=== PATIENT | female | born 1965 | race Caucasian/White ===

== ENCOUNTER 2020-10-19 10:40 | Inpatient (IN) | payer BC ==
[2020-10-19] MEDS ORDERED: SODIUM CHLORIDE 0.9% 1,000 ML IV STA (11:13)
[2020-10-19 11:26] LABS: Basophils % (A) 1 %; Eosinophils % (A) 0 %; HCT 49.6 % (34.0-46.0); HGB 16.7 gm/dL (11.4-16.0); Lymphocytes # (A) 1.2 k/uL (1.0-4.8); Lymphocytes % (A) 19 %; MCH 31.3 pg (25.0-35.0); MCHC 33.7 g/dL (31.0-37.0); MCV 92.8 fL (80.0-100.0); Mean Platelet Volume 8.2; Monocytes # (A) 0.2 k/uL (0-1.0); Monocytes % (A) 4 %; Neutrophils # (A) 4.6 k/uL (1.3-7.7); Neutrophils % (A) 75 %; Platelet Count 203 k/uL (150-450); RBC 5.35 m/uL (3.80-5.40); RDW 12.4 % (11.5-15.5); WBC 6.2 k/uL (3.8-10.6)
[2020-10-19 11:42] LABS: ALT 23 U/L (4-34); AST 55 U/L (14-36); African American GFR (CKD) >90 (>60 ml/min/1.73 sqM); Alkaline Phosphatase 73 U/L (38-126); Anion Gap 12 mmol/L; Blood Urea Nitrogen 16 mg/dL (7-17); Calcium 8.9 mg/dL (8.4-10.2); Carbon Dioxide 29 mmol/L (22-30); Chloride 97 mmol/L (98-107); Glucose 116 mg/dL (74-99); Magnesium 2.4 mg/dL (1.6-2.3); Non-African American GFR(CKD) >90 (>60 ml/min/1.73 sqM); Potassium 3.9 mmol/L (3.5-5.1); Sodium 138 mmol/L (137-145); Total Bilirubin 0.7 mg/dL (0.2-1.3); Total Protein 7.3 g/dL (6.3-8.2)
--- NOTE | 2020-10-19 11:42 | XR ---
EXAMINATION TYPE: XR chest 2V DATE OF EXAM: 10/19/2020 COMPARISON: NONE HISTORY: Difficulty in breathing. Cough and congestion. TECHNIQUE: Frontal and lateral views of the chest are obtained. FINDINGS: There is multifocal reticular and increased opacities of the mid to lower lungs. The card iac silhouette size is within normal limits. The osseous structures are intact. No pleural effusion or pneumothorax seen. Overlying EKG leads. IMPRESSION: Bilateral multifocal mid to lower lung increased opacities. Correlate to exclude covid-1 9 infection in current environment.
[2020-10-19 11:43] LABS: INR 0.9 (<1.2); Partial Thromboplastin Time 22.4 sec (22.0-30.0); Prothrombin Time 10.2 sec (9.0-12.0)
--- NOTE | 2020-10-19 11:55 | ED ---
SOB HPI - General Chief Complaint: Shortness of Breath Stated Complaint: covid+, worsening symptoms Time Seen by Provider: 10/19/20 11:00 Source: patient, RN notes reviewed Mode of arrival: wheelchair Limitations: no limitations - History of Present Illness Initial Comments: This a 54-year-old female presents emergency Department with chief complaint of shortness of breath. Patient states that she was diagnosed with COVID-19, symptoms started at the end of September with diagnosed on October 09. Patient states that she is not improving next has worsened recently. She states she just feels very weak, short of breath worse with any exertion. Patient had fevers and chills initially. Patient states she started with sore throat, congestion. Patient does not see PCP has no significant past THAT she knows of. - Related Data Home Medications Medication Instructions Recorded Confirmed No Known Home Medications 10/19/20 10/19/20 Allergies Allergy/AdvReac Type Severity Reaction Status Date / Time No Known Allergies Allergy Verified 10/19/20 10:52 Review of Systems ROS Statement: Those systems with pertinent positive or pertinent negative responses have been documented in the HPI. ROS Other: All systems not noted in ROS Statement are negative. Past Medical History Past Medical History: No Reported History History of Any Multi-Drug Resistant Organisms: None Reported Past Surgical History: No Surgical Hx Reported Past Psychological History: No Psychological Hx Reported Smoking Status: Never smoker Past Alcohol Use History: None Reported Past Drug Use History: None Reported General Exam Limitations: no limitations General appearance: alert, in no apparent distress Head exam: Present: atraumatic, normocephalic, normal inspection Eye exam: Present: normal appearance, PERRL, EOMI. Absent: scleral icterus, conjunctival injection, periorbital swelling ENT exam: Present: normal exam, normal oropharynx, mucous membranes moist Neck exam: Present: normal inspection, full ROM. Absent: tenderness, meningismus, lymphadenopathy Respiratory exam: Present: decreased breath sounds. Absent: normal lung sounds bilaterally, respiratory distress, wheezes, rales, rhonchi, stridor Cardiovascular Exam: Present: normal rhythm, tachycardia, normal heart sounds. Absent: systolic murmur, diastolic murmur, rubs, gallop, clicks GI/Abdominal exam: Present: soft, normal bowel sounds. Absent: distended, tenderness, guarding, rebound, rigid Course Vital Signs 10/19/20 10/19/20 10:53 11:17 Temperature 98.2 F Pulse Rate 113 H 104 H Respiratory 18 18 Rate Blood Pressure 136/87 142/93 O2 Sat by Pulse 88 L 94 L Oximetry Medical Decision Making - Medical Decision Making 54-year-old presented for dyspnea. Patient has evidence of bilateral pneumonia no evidence of PE. Patient is hypoxic will be admitted for further treatment and management. - Lab Data Result diagrams: 10/19/20 11:18 10/19/20 11:18 Lab Results 10/19/20 10/19/20 10/19/20 Range/Units 11:18 11:18 11:18 WBC 6.2 (3.8-10.6) k/uL RBC 5.35 (3.80-5.40) m/uL Hgb 16.7 H (11.4-16.0) gm/dL Hct 49.6 H (34.0-46.0) % MCV 92.8 (80.0-100.0) fL MCH 31.3 (25.0-35.0) pg MCHC 33.7 (31.0-37.0) g/dL RDW 12.4 (11.5-15.5) % Plt Count 203 (150-450) k/uL MPV 8.2 Neutrophils % 75 % Lymphocytes % 19 % Monocytes % 4 % Eosinophils % 0 % Basophils % 1 % Neutrophils # 4.6 (1.3-7.7) k/uL Lymphocytes # 1.2 (1.0-4.8) k/uL Monocytes # 0.2 (0-1.0) k/uL Eosinophils # 0.0 (0-0.7) k/uL Basophils # 0.0 (0-0.2) k/uL PT 10.2 (9.0-12.0) sec INR 0.9 (<1.2) APTT 22.4 (22.0-30.0) sec D-Dimer 0.77 H (<0.60) mg/L FEU Sodium 138 (137-145) mmol/L Potassium 3.9 (3.5-5.1) mmol/L Chloride 97 L (98-107) mmol/L Carbon Dioxide 29 (22-30) mmol/L Anion Gap 12 mmol/L BUN 16 (7-17) mg/dL Creatinine 0.53 (0.52-1.04) mg/dL Est GFR (CKD-EPI)AfAm >90 (>60 ml/min/1.73 sqM) Est GFR (CKD-EPI)NonAf >90 (>60 ml/min/1.73 sqM) Glucose 116 H (74-99) mg/dL Plasma Lactic Acid Marco (0.7-2.0) mmol/L Calcium 8.9 (8.4-10.2) mg/dL Magnesium 2.4 H (1.6-2.3) mg/dL Total Bilirubin 0.7 (0.2-1.3) mg/dL AST 55 H (14-36) U/L ALT 23 (4-34) U/L Alkaline Phosphatase 73 (38-126) U/L Troponin I (0.000-0.034) ng/mL Total Protein 7.3 (6.3-8.2) g/dL Albumin 4.0 (3.5-5.0) g/dL 10/19/20 10/19/20 Range/Units 11:18 11:18 WBC (3.8-10.6) k/uL RBC (3.80-5.40) m/uL Hgb (11.4-16.0) gm/dL Hct (34.0-46.0) % MCV (80.0-100.0) fL MCH (25.0-35.0) pg MCHC (31.0-37.0) g/dL RDW (11.5-15.5) % Plt Count (150-450) k/uL MPV Neutrophils % % Lymphocytes % % Monocytes % % Eosinophils % % Basophils % % Neutrophils # (1.3-7.7) k/uL Lymphocytes # (1.0-4.8) k/uL Monocytes # (0-1.0) k/uL Eosinophils # (0-0.7) k/uL Basophils # (0-0.2) k/uL PT (9.0-12.0) sec INR (<1.2) APTT (22.0-30.0) sec D-Dimer (<0.60) mg/L FEU Sodium (137-145) mmol/L Potassium (3.5-5.1) mmol/L Chloride (98-107) mmol/L Carbon Dioxide (22-30) mmol/L Anion Gap mmol/L BUN (7-17) mg/dL Creatinine (0.52-1.04) mg/dL Est GFR (CKD-EPI)AfAm (>60 ml/min/1.73 sqM) Est GFR (CKD-EPI)NonAf (>60 ml/min/1.73 sqM) Glucose (74-99) mg/dL Plasma Lactic Acid Marco 1.5 (0.7-2.0) mmol/L Calcium (8.4-10.2) mg/dL Magnesium (1.6-2.3) mg/dL Total Bilirubin (0.2-1.3) mg/dL AST (14-36) U/L ALT (4-34) U/L Alkaline Phosphatase (38-126) U/L Troponin I <0.012 (0.000-0.034) ng/mL Total Protein (6.3-8.2) g/dL Albumin (3.5-5.0) g/dL - EKG Data -: EKG Interpreted by Wy EKG Comments: EKG performed at 11:05 sinus tachycardia rate of 113 OH 120/76 QT/QTC 322/441 Disposition Clinical Impression: Pneumonia due to COVID-19 virus, Hypoxia Disposition: ADMITTED IP TO THIS HOSP Condition: Fair Referrals: None,Stated [Primary Care Provider] - 1-2 days
--- NOTE | 2020-10-19 12:45 | CT ---
EXAMINATION TYPE: CT chest angio for PE DATE OF EXAM: 10/19/2020 COMPARISON: Same day chest x-ray. HISTORY: elevated dimer, covid positive, shortness of breath CT DLP: 305.5 mGycm Automated exposure control for dose reduction was used. CONTRAST: CT Chest for pulmonary embolism performed with with IV Contrast, patient injected with 100 mL of Isov ue 370. FINDINGS: LUNGS: Correlating with x-ray there is multifocal groundglass opacities bilaterally with areas of org anizing consolidation in the lower lungs particularly lower lobes. No pleural effusion or pneumothora x. MEDIASTINUM: This is suboptimal study most dense contrast in SVC and thoracic aorta without aneurysm or dissection. Heterogeneity and diminished opacification of the pulmonary arteries without central s addle pulmonary embolism. Cannot exclude segmental and subsegmental pulmonary emboli in this study. T here are prominent bilateral hilar lymph nodes presumed reactive. Additional prominent mediastinal ly mph nodes in the paratracheal and subcarinal region No cardiomegaly or pericardial effusion is seen . OTHER: No additional significant abnormality is seen. IMPRESSION: 1. Suboptimal study without central pulmonary embolism. Cannot exclude peripheral segmental and subse gmental PE on this exam. 2. Bilateral multifocal groundglass opacities and organizing consolidations consistent with covid-19 infection.
[2020-10-19] MEDS ORDERED: DEXAMETHASONE SOD PHOSPHATE 10 MG/ML 1 ML VIAL IV STA (13:00)
[2020-10-19] MEDS ORDERED: NALOXONE 0.4 MG/ML 1 ML VIAL IV PRN (13:01)
--- NOTE | 2020-10-19 14:16 | P.HPIM ---
History of Present Illness H&P Date: 10/19/20 This is a 54-year-old female with no past medical history that presented to the emergency room with shortness of breath and exertional dyspnea. Patient was diagnosed with COVID-19 on October 09 after her son tested positive. Patient said that she was feeling well but for the past couple of days her shortness of breath got worse. She is having intermittent cough that is mostly unproductive. Patient was evaluated in the ER and was found to be hypoxic and plan to admit to the hospital for further evaluation. Review of Systems Review of system: 14 points review of systems were obtained and were negative except to what were mentioned in the HPI. Past Medical History Past Medical History: No Reported History History of Any Multi-Drug Resistant Organisms: None Reported Past Surgical History: No Surgical Hx Reported Past Psychological History: No Psychological Hx Reported Smoking Status: Never smoker Past Alcohol Use History: None Reported Past Drug Use History: None Reported Medications and Allergies Home Medications Medication Instructions Recorded Confirmed Type No Known Home Medications 10/19/20 10/19/20 History Allergies Allergy/AdvReac Type Severity Reaction Status Date / Time No Known Allergies Allergy Verified 10/19/20 10:52 Physical Exam Vitals: Vital Signs Temp Pulse Resp BP Pulse Ox 10/19/20 11:17 104 H 18 142/93 94 L 10/19/20 10:53 98.2 F 113 H 18 136/87 88 L Intake and Output 10/18/20 10/19/20 10/19/20 22:59 06:59 14:59 Other: Weight 78.018 kg General: The patient is awake and alert, in no distress Eye: there is normal conjunctiva bilaterally. Neck: The neck is supple, there is no JVD. Cardiovascular: Normal S1-S2, no S3-S4, no murmurs. Respiratory: Lungs diminished with scattered rhonchi and cough with deep breath Gastrointestinal: Abdomen is soft, nontender Musculoskeletal: There is no pedal edema. Neurological:. Speech is normal. Skin: Skin is warm and dry Results CBC & Chem 7: 10/19/20 11:18 10/19/20 11:18 Labs: Abnormal Lab Results - Last 24 Hours (Table) 10/19/20 10/19/20 10/19/20 Range/Units 11:18 11:18 11:18 Hgb 16.7 H (11.4-16.0) gm/dL Hct 49.6 H (34.0-46.0) % D-Dimer 0.77 H (<0.60) mg/L FEU Chloride 97 L (98-107) mmol/L Glucose 116 H (74-99) mg/dL Magnesium 2.4 H (1.6-2.3) mg/dL AST 55 H (14-36) U/L Assessment and Plan Assessment: 1. COVID-19 pneumonia in un-vaccinated patient 2. Acute hypoxic respiratory failure currently on 2 L of oxygen 3. Elevated d-dimer with no evidence of PE on CT angiogram Today, I reviewed her medication list and lab work results. Computed tomography scan of the chest showed bilateral multifocal groundglass opacities and organizing consolidations. Patient was started on Decadron day #1. Continue vitamin C, vitamin D, and zinc supplements. Repeat lab work in the morning. Continue supportive care. Gentle IV fluid hydration.
--- NOTE | 2020-10-19 14:54 | P.CNPUL ---
History of Present Illness Consult date: 10/19/20 Requesting physician: Lara Paige Reason for consult: dyspnea Chief complaint: Acute hypoxic respiratory failure, COVID-19 pneumonia History of present illness: This is a very pleasant 54-year-old female who was diagnosed with COVID-19 on October 09 after her son tested positive. Lois's has been diagnosed with COVID 19, and is currently hospitalized with COVID pneumonia. Patient initially felt well, however in the last few days her shortness of breath and exertional dyspnea got worse. She reports intermittent cough, which is dry. She has no significant medical history other than a history of clotting disorder in her father, possibly MTHFR gene. She personally was never tested for it. Chest x-ray in emergency department showed bilateral multifocal mid to lower lung increased opacities. Blood work showed a white blood cell count of 6.2, hemoglobin of 16.7, lymphocyte count is 1.2, d-dimer was 0.77, sodium was 138, potassium is 3.9, chloride is 97, CO2 is 29, BUN is 16, creatinine 0.53, lactic acid was 1.5, AST was 55, ALT was 23, alk phos was 73, troponin was less than 0.012. Was noted to be hypoxic in the emergency department with a pulse ox of 88%. She was placed on supplemental oxygen, she is currently requiring 3 L with a pulse ox of 94%, she slightly tachycardic, she is having low-grade fevers with a temp of 100.1F. She is outside of the window for Remdesivir, she was placed on Decadron, prophylactic Lovenox. CTA chest was a suboptimal study without evidence of central pulmonary embolism. Peripheral segmental and subsegmental PEs could not be excluded, there was bilateral multifocal groundglass pneumonia consistent with COVID-19 infection. Review of Systems All systems: negative Constitutional: Denies chills, Denies fever Eyes: denies blurred vision, denies pain Ears, nose, mouth and throat: Denies headache, Denies sore throat Cardiovascular: Denies chest pain, Denies shortness of breath Respiratory: Reports cough, Reports dyspnea Gastrointestinal: Denies abdominal pain, Denies diarrhea, Denies nausea, Denies vomiting Genitourinary: Denies dysuria, Denies hematuria Musculoskeletal: Denies myalgias Integumentary: Denies pruritus, Denies rash Neurological: Denies numbness, Denies weakness Psychiatric: Denies anxiety, Denies depression Endocrine: Denies fatigue, Denies weight change Past Medical History Past Medical History: No Reported History History of Any Multi-Drug Resistant Organisms: None Reported Past Surgical History: No Surgical Hx Reported Past Psychological History: No Psychological Hx Reported Smoking Status: Never smoker Past Alcohol Use History: None Reported Past Drug Use History: None Reported Medications and Allergies Home Medications Medication Instructions Recorded Confirmed Type No Known Home Medications 10/19/20 10/19/20 History Allergies Allergy/AdvReac Type Severity Reaction Status Date / Time No Known Allergies Allergy Verified 10/19/20 10:52 Physical Exam Vitals: Vital Signs Temp Pulse Resp BP Pulse Ox 10/19/20 11:17 104 H 18 142/93 94 L 10/19/20 10:53 98.2 F 113 H 18 136/87 88 L Intake and Output 10/18/20 10/19/20 10/19/20 22:59 06:59 14:59 Other: Weight 78.018 kg GENERAL EXAM: Alert, very pleasant, 54-year-old white female, on 3 L of oxygen a pulse ox of 94%, resting on the gurney in the emergency department, slightly tachycardic on a monitor, and sinus mechanism, comfortable in no apparent distress. HEAD: Normocephalic/atraumatic. EYES: Normal reaction of pupils, equal size. Conjunctiva pink, sclera white. NOSE: Clear with pink turbinates. THROAT: No erythema or exudates. NECK: No masses, no JVD, no thyroid enlargement, no adenopathy. CHEST: No chest wall deformity. Symmetrical expansion. LUNGS: Equal air entry with mild bilateral crackles CVS: Regular rate and rhythm, normal S1 and S2, no gallops, no murmurs, no rubs ABDOMEN: Soft, nontender. No hepatosplenomegaly, normal bowel sounds, no guarding or rigidity. EXTREMITIES: No clubbing, no edema, no cyanosis, 2+ pulses and upper and lower extremities. MUSCULOSKELETAL: Muscle strength and tone normal. SPINE: No scoliosis or deformity SKIN: No rashes CENTRAL NERVOUS SYSTEM: Alert and oriented -3. No focal deficits, tone is normal in all 4 extremities. PSYCHIATRIC: Alert and oriented -3. Appropriate affect. Intact judgment and insight. Results - Laboratory Findings CBC and BMP: 10/19/20 11:18 10/19/20 11:18 PT/INR, D-dimer PT 10.2 sec (9.0-12.0) 10/19/20 11:18 INR 0.9 (<1.2) 10/19/20 11:18 D-Dimer 0.77 mg/L FEU (<0.60) H 10/19/20 11:18 Abnormal lab findings: Abnormal Labs 10/19/20 10/19/20 10/19/20 11:18 11:18 11:18 Hgb 16.7 H Hct 49.6 H D-Dimer 0.77 H Chloride 97 L Glucose 116 H Magnesium 2.4 H AST 55 H - Diagnostic Findings Chest x-ray: report reviewed, image reviewed CT scan - chest: report reviewed, image reviewed Additional studies: EKG reviewed Assessment and Plan Plan: Assessment: #1. Acute hypoxic respiratory failure related to acute COVID-19 pneumonia, diagnosed on 10/09/2020, outside of the window for Remdesivir. #2. Elevated d-dimer, CTA chest showed no evidence of a central pulmonary embolism, patient will be placed on prophylactic Lovenox #3. Family history of clotting disorder in her father, possibly MTHFR gene mutation Plan: Patient is outside the window for Remdesivir Continue Decadron 6 program daily Continue Lovenox prophylactic dose We'll add vitamins We'll follow inflammatory markers and d-dimer If hypoxia progresses, we'll consider Baricitinib I performed a history & physical examination of the patient and discussed their management with my nurse practitioner, Rosa Kruger. I reviewed the nurse practitioner's note and agree with the documented findings and plan of care. Lung sounds are positive for diminished breath sounds throughout the lung guzman. The findings and the impression was discussed with the patient. I attest to the documentation by the nurse practitioner. Time with Patient: Greater than 30
[2020-10-19] MEDS: dexAMETHasone 2 MG TAB PO SCH (16:33)
[2020-10-19] MEDS: ASCORBIC ACID 500 MG TAB PO SCH ×2 (16:34→20:30)
[2020-10-19] MEDS: SODIUM CHLORIDE 0.9% 1,000 ML IV SCH (16:34)
[2020-10-19] MEDS: ENOXAPARIN 40 MG/0.4 ML SYRINGE SQ SCH (16:34)
[2020-10-19] MEDS: ZINC SULFATE 220 MG CAP PO SCH (16:34)
[2020-10-20] MEDS: SODIUM CHLORIDE 0.9% 1,000 ML IV SCH (06:06)
[2020-10-20 07:16] LABS: C Reactive Protein 1.2 mg/dL (<1.0)
--- NOTE | 2020-10-20 07:16 | XR ---
EXAMINATION TYPE: XR chest 1V portable DATE OF EXAM: 10/20/2020 CLINICAL HISTORY: Difficulty breathing and covid progress study. TECHNIQUE: Single AP portable upright view of the chest is obtained. COMPARISON: Chest x-ray and CT chest from one day earlier FINDINGS: There are multifocal increased opacities in the mid to lower lungs regions demonstrated. The cardiac silhouette size is slightly more prominent but within normal limits. The osseous struct ures are intact. IMPRESSION: Bilateral multifocal mid to lower lung increased opacities consistent with covid-19 infe ction. No significant change from one day earlier.
[2020-10-20] MEDS: dexAMETHasone 2 MG TAB PO SCH (08:23)
[2020-10-20] MEDS: CHOLECALCIFEROL 25 MCG (1000 IU) TABLET PO SCH (08:23)
[2020-10-20] MEDS: ZINC SULFATE 220 MG CAP PO SCH (08:24)
[2020-10-20] MEDS: ASCORBIC ACID 500 MG TAB PO SCH ×2 (08:24→21:43)
[2020-10-20] MEDS: ENOXAPARIN 40 MG/0.4 ML SYRINGE SQ SCH (08:24)
--- NOTE | 2020-10-20 10:43 | P.PN ---
Subjective Patient reports feeling better today. She is currently on 2 L of oxygen. Chest x-ray this morning showed increased opacities bilaterally. Objective - Vital Signs Vital signs: Vital Signs Temp 97.7 F 10/20/20 05:21 Pulse 63 10/20/20 05:21 Resp 16 10/20/20 08:00 BP 149/82 10/20/20 05:21 Pulse Ox 90 L 10/20/20 05:21 Intake & Output 10/19/20 10/20/20 10/20/20 18:59 06:59 18:59 Weight 78.018 kg Other: # Voids 2 # Bowel Movements 0 - Exam General: The patient is awake and alert, in no distress Eye: there is normal conjunctiva bilaterally. Neck: The neck is supple, there is no JVD. Cardiovascular: Normal S1-S2, no S3-S4, no murmurs. Respiratory: Lungs clear to auscultation bilaterally Gastrointestinal: Abdomen is soft, nontender Musculoskeletal: There is no pedal edema. Neurological:. Speech is normal. Skin: Skin is warm and dry - Labs CBC & Chem 7: 10/19/20 11:18 10/19/20 11:18 Labs: Abnormal Lab Results - Last 24 Hours (Table) 10/19/20 10/19/20 10/19/20 Range/Units 11:18 11:18 11:18 Hgb 16.7 H (11.4-16.0) gm/dL Hct 49.6 H (34.0-46.0) % D-Dimer 0.77 H (<0.60) mg/L FEU Chloride 97 L (98-107) mmol/L Glucose 116 H (74-99) mg/dL Magnesium 2.4 H (1.6-2.3) mg/dL AST 55 H (14-36) U/L Lactate Dehydrogenase (313-618) U/L C-Reactive Protein (<1.0) mg/dL 10/20/20 10/20/20 Range/Units 05:48 05:49 Hgb (11.4-16.0) gm/dL Hct (34.0-46.0) % D-Dimer 0.76 H (<0.60) mg/L FEU Chloride (98-107) mmol/L Glucose (74-99) mg/dL Magnesium (1.6-2.3) mg/dL AST (14-36) U/L Lactate Dehydrogenase 778 H (313-618) U/L C-Reactive Protein 1.2 H (<1.0) mg/dL Assessment and Plan Assessment: 1. COVID-19 pneumonia in un-vaccinated patient 2. Acute hypoxic respiratory failure currently on 2 L of oxygen 3. Elevated d-dimer with no evidence of PE on CT angiogram 4. DVT prophylaxis with subcu Lovenox Today, I reviewed her medication list and lab work results. Computed tomography scan of the chest showed bilateral multifocal groundglass opacities and organizing consolidations. Patient was started on Decadron day #2. Continue vitamin C, vitamin D, and zinc supplements. Continue supportive care. Discontinue IV fluid
--- NOTE | 2020-10-20 14:20 | P.PN ---
Subjective Progress Note Date: 10/20/20 Principal diagnosis: Acute hypoxic respiratory failure secondary COVID-19 pneumonia This is a very pleasant 54-year-old female who was diagnosed with COVID-19 on October 09 after her son tested positive. Lois's has been diagnosed with COVID 19, and is currently hospitalized with COVID pneumonia. Patient initially felt well, however in the last few days her shortness of breath and exertional dyspnea got worse. She reports intermittent cough, which is dry. She has no significant medical history other than a history of clotting disorder in her father, possibly MTHFR gene. She personally was never tested for it. Chest x-ray in emergency department showed bilateral multifocal mid to lower lung increased opacities. Blood work showed a white blood cell count of 6.2, hemoglobin of 16.7, lymphocyte count is 1.2, d-dimer was 0.77, sodium was 138, potassium is 3.9, chloride is 97, CO2 is 29, BUN is 16, creatinine 0.53, lactic acid was 1.5, AST was 55, ALT was 23, alk phos was 73, troponin was less than 0.012. Was noted to be hypoxic in the emergency department with a pulse ox of 88%. She was placed on supplemental oxygen, she is currently requiring 3 L with a pulse ox of 94%, she slightly tachycardic, she is having low-grade fevers with a temp of 100.1F. She is outside of the window for Remdesivir, she was placed on Decadron, prophylactic Lovenox. CTA chest was a suboptimal study without evidence of central pulmonary embolism. Peripheral segmental and subsegmental PEs could not be excluded, there was bilateral multifocal groundglass pneumonia consistent with COVID-19 infection. Reevaluated today on 10/20/2020, patient is doing better, seems to be more comfortable, she has a minimal cough. She is on 2 L nasal cannula with O2 sat shows 96%. Her temp is 98.0, pulse is 70 respiration 18 and blood pressure is 134/86. Patient seems to be quite comfortable, and resting nicely in bed. D- dimer today is 0.76, labs from yesterday were relatively uneventful. LDH today is 778 and C-reactive protein is 1.2. Patient was out of the window for treatment with REM. She is receiving Decadron, and she is not sick enough to be placed on BARICITINIB Objective - Vital Signs Vital signs: Vital Signs Temp 98.0 F 10/20/20 14:02 Pulse 72 10/20/20 14:02 Resp 18 10/20/20 14:02 BP 134/86 10/20/20 14:02 Pulse Ox 96 10/20/20 14:02 Intake & Output 10/19/20 10/20/20 10/20/20 18:59 06:59 18:59 Weight 78.018 kg Other: # Voids 2 # Bowel Movements 0 - Exam Physical Exam: Revealed 54-year-old female in no distress, on 2 L nasal cannula. Head: Atraumatic normocephalic. HEENT:[Neck is supple.] [No neck masses.] [No thyromegaly.] [No JVD.] Chest: [Fine crackles at the bases. no rhonchi, no wheezes.] Cardiac Exam: [Normal S1 and S2, no S3 gallop, no murmur.] Abdomen: [Soft, nontender, no megaly, no rebound, no guarding, normal bowel sounds.] Extremities: [No clubbing, no edema, no cyanosis.] Neurological Exam: [No focal neurologic deficit.] Alert and oriented 3. Psychiatric: Normal mood, affect and normal mental status examination. Skin: No rashes. - Labs CBC & Chem 7: 10/19/20 11:18 10/19/20 11:18 Labs: Abnormal Lab Results - Last 24 Hours (Table) 10/20/20 10/20/20 Range/Units 05:48 05:49 D-Dimer 0.76 H (<0.60) mg/L FEU Lactate Dehydrogenase 778 H (313-618) U/L C-Reactive Protein 1.2 H (<1.0) mg/dL Assessment and Plan Assessment: #1. Acute hypoxic respiratory failure related to acute COVID-19 pneumonia, diagnosed on 10/09/2020, outside of the window for Remdesivir. #2. Elevated d-dimer, CTA chest showed no evidence of a central pulmonary embolism, patient will be placed on prophylactic Lovenox #3. Family history of clotting disorder in her father, possibly MTHFR gene mutation Plan: Patient is outside the window for Remdesivir Continue Decadron 6 mg IV push daily. Continue Lovenox prophylactic dose We'll add vitamins We'll follow inflammatory markers and d-dimer Consider discharge planning in the next 24 hours. May need to be on home oxygen temporarily. Time with Patient: Less than 30
[2020-10-21] MEDS: CHOLECALCIFEROL 25 MCG (1000 IU) TABLET PO SCH (08:21)
[2020-10-21] MEDS: dexAMETHasone 2 MG TAB PO SCH (08:21)
[2020-10-21] MEDS: ENOXAPARIN 40 MG/0.4 ML SYRINGE SQ SCH (08:21)
[2020-10-21] MEDS: ASCORBIC ACID 500 MG TAB PO SCH (08:21)
[2020-10-21] MEDS: ZINC SULFATE 220 MG CAP PO SCH (08:21)
[2020-10-21 10:12] VITALS: RESP 17
--- NOTE | 2020-10-21 12:49 | P.DS ---
Providers Date of admission: 10/19/20 12:59 Expected date of discharge: 10/21/20 Attending physician: Lara Paige Consults: 10/19/20 13:02 Consult Physician Urgent Consulting Provider: Tobin Lazar Consult Reason/Comments: COVID-19, hypoxia Do you want consulting provider notified?: Yes Primary care physician: Stated None Hospital Course: This is a 54-year-old female with no significant past medical history that presented to the emergency room with worsening shortness of breath and dyspnea. Patient was evaluated and admitted to the hospital for further management of her medical problems noted below. 1. COVID-19 pneumonia in un-vaccinated patient 2. Acute hypoxic respiratory failure currently on 2 L of oxygen 3. Elevated d-dimer with no evidence of PE on CT angiogram Patient was treated with bronchodilators and steroids. Her overall condition improved throughout her hospital stay. She was still requiring 2 L of oxygen to maintain O2 greater than 90%. She will be discharged home with home O2. Physical exam: General: The patient is awake and alert, in no distress Eye: there is normal conjunctiva bilaterally. Neck: The neck is supple, there is no JVD. Cardiovascular: Normal S1-S2, no S3-S4, no murmurs. Respiratory: Lungs clear to auscultation bilaterally Gastrointestinal: Abdomen is soft, nontender Musculoskeletal: There is no pedal edema. Neurological:. Speech is normal. Skin: Skin is warm and dry Patient Condition at Discharge: Fair Plan - Discharge Summary New Discharge Prescriptions: New Ascorbic Acid [Vitamin C] 500 mg PO BID tab Cholecalciferol [Vitamin D3 (25 Mcg = 1000 Iu)] 50 mcg PO DAILY tablet Dexamethasone [Decadron] 6 mg PO DAILY 7 Days #7 tablet Zinc Sulfate [Orazinc] 220 mg PO DAILY cap Discharge Medication List Ascorbic Acid [Vitamin C] 500 mg PO BID tab 10/21/20 [Rx] Cholecalciferol [Vitamin D3 (25 Mcg = 1000 Iu)] 50 mcg PO DAILY tablet 10/21/20 [Rx] Dexamethasone [Decadron] 6 mg PO DAILY 7 Days #7 tablet 10/21/20 [Rx] Zinc Sulfate [Orazinc] 220 mg PO DAILY cap 10/21/20 [Rx] Follow up Appointment(s)/Referral(s): Tobin Lazar MD [STAFF PHYSICIAN] - 3 Weeks [facility] [NON-STAFF] - As Needed (oxygen ) Ortega Wallace [STAFF PHYSICIAN] - As Needed (To establish a new patient relationshp with this office, please call them once out of isolation to schedule your appointment. Thank you.) Discharge Disposition: HOME SELF-CARE
[2020-10-21 14:48] VITALS: BP 119/79; PULSE 84; TEMP 98.1
--- NOTE | 2020-10-21 15:19 | P.PN ---
Subjective Progress Note Date: 10/21/20 Principal diagnosis: COVID-19 pneumonia This is a very pleasant 54-year-old female who was diagnosed with COVID-19 on October 09 after her son tested positive. Lois's has been diagnosed with COVID 19, and is currently hospitalized with COVID pneumonia. Patient initially felt well, however in the last few days her shortness of breath and exertional dyspnea got worse. She reports intermittent cough, which is dry. She has no significant medical history other than a history of clotting disorder in her father, possibly MTHFR gene. She personally was never tested for it. Chest x-ray in emergency department showed bilateral multifocal mid to lower lung increased opacities. Blood work showed a white blood cell count of 6.2, hemoglobin of 16.7, lymphocyte count is 1.2, d-dimer was 0.77, sodium was 138, potassium is 3.9, chloride is 97, CO2 is 29, BUN is 16, creatinine 0.53, lactic acid was 1.5, AST was 55, ALT was 23, alk phos was 73, troponin was less than 0.012. Was noted to be hypoxic in the emergency department with a pulse ox of 88%. She was placed on supplemental oxygen, she is currently requiring 3 L with a pulse ox of 94%, she slightly tachycardic, she is having low-grade fevers with a temp of 100.1F. She is outside of the window for Remdesivir, she was placed on Decadron, prophylactic Lovenox. CTA chest was a suboptimal study without evidence of central pulmonary embolism. Peripheral segmental and subsegmental PEs could not be excluded, there was bilateral multifocal groundglass pneumonia consistent with COVID-19 infection. Reevaluated today on 10/20/2020, patient is doing better, seems to be more comfortable, she has a minimal cough. She is on 2 L nasal cannula with O2 sat shows 96%. Her temp is 98.0, pulse is 70 respiration 18 and blood pressure is 134/86. Patient seems to be quite comfortable, and resting nicely in bed. D- dimer today is 0.76, labs from yesterday were relatively uneventful. LDH today is 778 and C-reactive protein is 1.2. Patient was out of the window for treatment with REM. She is receiving Decadron, and she is not sick enough to be placed on BARICITINIB On 10/21/2020 patient is seen in follow-up on medical surgical floor, she is awake and alert, breathing comfortably, she is currently on 2 L of oxygen pulse ox of 91%, she didn't qualify for home oxygen, she did desaturate to 87% on room air, no worsening dyspnea or hypoxia since admission, vital signs have been stable. She was afebrile, blood pressure stable, she does get short of breath with exertion, but no chest discomfort, last chest x-ray from yesterday showed multifocal pneumonia related to COVID-19 without significant change. Today's labs have been reviewed, showing d-dimer of 0.76, LDH of 778, and CRP of 1.2, patient was outside the window for Remdesivir, and she has been treated with Decadron, and prophylactic dose of Lovenox. Her was also hospitalized here is also improving, and we'll be discharged home today Objective - Vital Signs Vital signs: Vital Signs Temp 98.1 F 10/21/20 14:06 Pulse 84 10/21/20 14:06 Resp 17 10/21/20 14:06 BP 119/79 10/21/20 14:06 Pulse Ox 95 10/21/20 14:06 Intake & Output 10/20/20 10/21/20 10/21/20 18:59 06:59 18:59 Intake Total 850 Balance 850 Intake: Intake, IV Titration 850 Amount Sodium Chloride 0.9% 1, 850 000 ml @ 75 mls/hr IV . [id number] [facility] Rx#:[id number] Other: # Voids 3 3 - Exam GENERAL EXAM: Alert, very pleasant, 54-year-old white female, on 2 L of oxygen a pulse ox of 91%, comfortable in no apparent distress. HEAD: Normocephalic/atraumatic. EYES: Normal reaction of pupils, equal size. Conjunctiva pink, sclera white. NOSE: Clear with pink turbinates. THROAT: No erythema or exudates. NECK: No masses, no JVD, no thyroid enlargement, no adenopathy. CHEST: No chest wall deformity. Symmetrical expansion. LUNGS: Equal air entry with mild bilateral crackles CVS: Regular rate and rhythm, normal S1 and S2, no gallops, no murmurs, no rubs ABDOMEN: Soft, nontender. No hepatosplenomegaly, normal bowel sounds, no guarding or rigidity. EXTREMITIES: No clubbing, no edema, no cyanosis, 2+ pulses and upper and lower extremities. MUSCULOSKELETAL: Muscle strength and tone normal. SPINE: No scoliosis or deformity SKIN: No rashes CENTRAL NERVOUS SYSTEM: Alert and oriented -3. No focal deficits, tone is normal in all 4 extremities. PSYCHIATRIC: Alert and oriented -3. Appropriate affect. Intact judgment and insight. - Labs CBC & Chem 7: 10/19/20 11:18 10/19/20 11:18 Assessment and Plan Plan: Assessment: #1. Acute hypoxic respiratory failure related to acute COVID-19 pneumonia, diagnosed on 10/09/2020, outside of the window for Remdesivir. #2. Elevated d-dimer, CTA chest showed no evidence of a central pulmonary embolism, patient will be placed on prophylactic Lovenox #3. Family history of clotting disorder in her father, possibly MTHFR gene mutation Plan: Clinically she has remained stable since admission, without progressive dyspnea with hypoxia Patient is outside the window for Remdesivir She was treated with Decadron, prophylactic dose Lovenox and vitamins Her last chest x-ray yesterday showed persistence of multifocal pneumonia without significant change She did qualify for home oxygen Clinically she appears to be very comfortable, No acute events overnight, no fever or chills She could consider for discharge home today on home oxygen She is instructed to come back for reevaluation for worsening dyspnea and hypoxia She can go home on 7 more days of oral Decadron, and multivitamins No need for post discharge anticoagulation Today's d-dimer has been noted Outpatient follow-up with Dr. Lloyd in the office in 3 weeks I performed a history & physical examination of the patient and discussed their management with my nurse practitioner, Rosa Kruger. I reviewed the nurse practitioner's note and agree with the documented findings and plan of care. Lung sounds are positive for diminished breath sounds throughout the lung guzman. The findings and the impression was discussed with the patient. I attest to the documentation by the nurse practitioner. Time with Patient: Less than 30
== END 2020-10-21 16:47 | disposition home or self-care (01) | DRG 177 ==
LOC: EC 10:40 → 4SSUR 12:59
PROVIDERS: ADMIT Internal Medicine; ATTEND Internal Medicine
DX: U07.1 COVID-19 (principal); J12.82 Pneumonia due to coronavirus disease 2019; J96.01 Acute respiratory failure with hypoxia; Z83.2 Family history of diseases of the blood and blood-forming organs and certain disorders involving the immune mechanism; R79.89 Other specified abnormal findings of blood chemistry
CPT/HCPCS: 36415; 71045; 71046; 71275; 80053; 83605; 83615; 83735; 84484; 85025; 85379; 85610; 85730; 86140; 93005; 96361; 96374; 99285

== ENCOUNTER 2024-05-12 03:51 | Emergency (ER) | payer BC ==
[2024-05-12] MEDS: SODIUM CHLORIDE 0.9% 1,000 ML IV ONE (04:30)
[2024-05-12] MEDS: ACETAMINOPHEN TAB 500 MG TAB PO STA (04:30)
[2024-05-12 04:39] LABS: Basophils # (A) 0.1 k/uL (0-0.2); Basophils % (A) 2 %; Eosinophils # (A) 0.1 k/uL (0-0.7); Eosinophils % (A) 1 %; HCT 48.6 % (34.0-46.0); HGB 15.6 gm/dL (11.4-16.0); Lymphocytes % (A) 19 %; MCH 29.9 pg (25.0-35.0); MCHC 32.2 g/dL (31.0-37.0); MCV 93.1 fL (80.0-100.0); Mean Platelet Volume 8.2; Monocytes # (A) 0.3 k/uL (0-1.0); Monocytes % (A) 5 %; Neutrophils # (A) 3.8 k/uL (1.3-7.7); Neutrophils % (A) 71 %; Platelet Count 124 k/uL (150-450); RBC 5.21 m/uL (3.80-5.40); RDW 13.2 % (11.5-15.5); WBC 5.4 k/uL (3.8-10.6)
--- NOTE | 2024-05-12 04:40 | ED ---
General Adult HPI - General Chief complaint: Syncope Stated complaint: Syncope, Cold Symptoms Time Seen by Provider: 05/12/24 03:53 Source: patient, RN notes reviewed, old records reviewed Mode of arrival: ambulatory Limitations: no limitations - History of Present Illness Initial comments: 58-year-old female presents for evaluation of brief syncopal episode patient has been sick for the past 4 days, cough, nasal congestion and sinus pressure. Patient noted to be febrile upon arrival. No chest pain. No dyspnea. No abdominal pain nausea or vomiting. No lower extremity pain or swelling. Patient had gone to the bathroom and when she attempted to return to her room she found herself on the ground and believes she passed out momentarily. No in jury. - Related Data Previous Rx's Medication Instructions Recorded Ascorbic Acid [Vitamin C] 500 mg PO BID tab 10/21/20 Cholecalciferol [Vitamin D3 (25 50 mcg PO DAILY tablet 10/21/20 Mcg = 1000 Iu)] Zinc Sulfate [Orazinc] 220 mg PO DAILY cap 10/21/20 dexAMETHasone [Decadron] 6 mg PO DAILY 7 Days #7 tablet 10/21/20 Albuterol Inhaler [Ventolin Hfa 1 - 2 puff INHALATION Q4HR PRN #1 05/12/24 Inhaler] each Azithromycin [Zithromax Z Pack] 1 tab PO DIRECTED #6 tab 05/12/24 Oseltamivir [Tamiflu] 75 mg PO Q12HR #10 cap 05/12/24 Allergies Allergy/AdvReac Type Severity Reaction Status Date / Time No Known Allergies Allergy Verified 05/12/24 03:56 Review of Systems ROS Statement: Those systems with pertinent positive or pertinent negative responses have been documented in the HPI. ROS Other: All systems not noted in ROS Statement are negative. Past Medical History Past Medical History: No Reported History History of Any Multi-Drug Resistant Organisms: None Reported Past Surgical History: No Surgical Hx Reported Past Psychological History: No Psychological Hx Reported Smoking Status: Never smoker Past Alcohol Use History: None Reported Past Drug Use History: None Reported General Exam General appearance: alert, in no apparent distress Head exam: Present: atraumatic, normocephalic Eye exam: Present: normal appearance, PERRL ENT exam: Present: mucous membranes dry Neck exam: Present: normal inspection. Absent: tenderness, meningismus Respiratory exam: Present: normal lung sounds bilaterally. Absent: respiratory distress, wheezes Cardiovascular Exam: Present: regular rate, normal rhythm GI/Abdominal exam: Present: soft. Absent: distended, tenderness Extremities exam: Present: normal inspection, normal capillary refill Neurological exam: Present: alert, oriented X3 Psychiatric exam: Present: normal affect, normal mood Skin exam: Present: warm, dry, intact Course Vital Signs 05/12/24 05/12/24 05/12/24 03:52 04:08 05:16 Temperature 98.4 F 101.8 F H 100.9 F H Pulse Rate 123 H 87 Respiratory 18 19 Rate Blood Pressure 128/78 130/89 O2 Sat by Pulse 92 L 92 L Oximetry 05/12/24 05:35 Temperature Pulse Rate Respiratory Rate Blood Pressure O2 Sat by Pulse 94 L Oximetry Medical Decision Making - Medical Decision Making Was pt. sent in by a medical professional or institution (Dr. PA, GIFT WRAPPER, urgent care, hospital, or [facility]...) When possible be specific @ -No Did you speak to anyone other than the patient for history (EMS, parent, family, police, friend...)? What history was obtained from this source @ -No Did you review nursing and triage notes (agree or disagree)? Why? @ -I reviewed and agree with nursing and triage notes Were old charts reviewed (outside hosp., previous admission, EMS record, old EKG, old radiological studies, urgent care reports/EKG's, [facility] records)? Report findings @ -No old charts were reviewed Differential Syncope: Valvular disease, hypertrophic cardiomyopathy, pulmonary embolism, tamponade, tachycardia, bradycardia, AK, hypovolemia, hemorrhage, dissection, anemia, intracranial hemorrhage, seizure, hypoglycemia, carbon monoxide poisoning, this is not meant to be an all-inclusive list. EKG interpreted by me (3pts min.). @ -Sinus tach with a rate of 101 TX interval 135, QRS duration 92, QTc [address] segment elevation in the visualized leads, V5 absent. X-rays interpreted by me (1pt min.). @ -[Chest x-ray showing right lower lobe infiltrate CT interpreted by me (1pt min.). @ -None done U/S interpreted by me (1pt. min.). @ -None done What testing was considered but not performed or refused? (CT, X-rays, U/S, labs)? Why? @ -None What meds were considered but not given or refused? Why? @ -None Did you discuss the management of the patient with other professionals (juan zepeda i.e. , PA, GIFT WRAPPER, lab, RT, psych nurse, psychosocial rehabilitation counselor, emergency preparedness coordinator, teacher, deck officer, case making machine operator)? Give summary @ -No Was smoking cessation discussed for >3mins.? @ -No Was critical care preformed (if so, how long)? @ -No Were there social determinants of health that impacted care today? How? (Homelessness, low income, unemployed, alcoholism, drug addiction, transportation, low edu. Level, literacy, decrease access to med. care, [facility], rehab)? @ -No Was there de-escalation of care discussed even if they declined (Discuss DNR or withdrawal of care, Hospice)? DNR status @ -No What co-morbidities impacted this encounter? (DM, HTN, Smoking, COPD, CAD, Cancer, CVA, ARF, Chemo, Hep., AIDS, mental health diagnosis, sleep apnea, morbid obesity)? @ -None Was patient admitted / discharged? Hospital course, mention meds given and route, prescriptions, significant lab abnormalities, going to OR and other pertinent info. @ -58-year-old female with upper respiratory symptoms, cough, fever, and brief syncopal episode. Patient admits to not eating and drinking well this past for 5 days with her current illness. Patient is in sinus rhythm. Chest x-ray does show a right lower lobe infiltrate. Patient has normal CBC, normal CMP. She test positive for influenza A. After fluids and antipyretics heart rate and symptoms improved. Patient started on both Tamiflu and oral antibiotics for concurrent bacterial pneumonia. Return parameters discussed. Undiagnosed new problem with uncertain prognosis? @ -No Drug Therapy requiring intensive monitoring for toxicity (Heparin, Nitro, Insulin, Cardizem)? @ -No Were any procedures done? @ -No Diagnosis/symptom? @ -Influenza, pneumonia Acute, or Chronic, or Acute on Chronic? @Acute Uncomplicated (without systemic symptoms) or Complicated (systemic symptoms)? @ -Default Side effects of treatment? @ -No Exacerbation, Progression, or Severe Exacerbation? @ -No Poses a threat to life or bodily function? How? (Chest pain, USA, AK, pneumonia, PE, COPD, DKA, ARF, appy, cholecystitis, CVA, Diverticulitis, Homicidal, Suicidal, threat to staff... and all critical care pts) @ -[Low risk at this time - Lab Data Result diagrams: 05/12/24 04:26 05/12/24 04:26 Lab Results 05/12/24 05/12/24 05/12/24 Range/Units 04:26 04: 04:26 WBC 5.4 (3.8-10.6) k/uL RBC 5.21 (3.80-5.40) m/uL Hgb 15.6 (11.4-16.0) gm/dL Hct 48.6 H (34.0-46.0) % MCV 93.1 (80.0-100.0) fL MCH 29.9 (25.0-35.0) pg MCHC 32.2 (31.0-37.0) g/dL RDW 13.2 (11.5-15.5) % Plt Count 124 L (150-450) k/uL MPV 8.2 Neutrophils % 71 % Lymphocytes % 19 % Monocytes % 5 % Eosinophils % 1 % Basophils % 2 % Neutrophils # 3.8 (1.3-7.7) k/uL Lymphocytes # 1.0 (1.0-4.8) k/uL Monocytes # 0.3 (0-1.0) k/uL Eosinophils # 0.1 (0-0.7) k/uL Basophils # 0.1 (0-0.2) k/uL PT 11.3 (10.0-12.5) sec INR 1.0 (<1.2) APTT 22.5 (22.0-30.0) sec Sodium 136 L (137-145) mmol/L Potassium 3.6 (3.5-5.1) mmol/L Chloride 96 L (98-107) mmol/L Carbon Dioxide 30 (22-30) mmol/L Anion Gap 10 mmol/L BUN 18 H (7-17) mg/dL Creatinine 0.92 (0.52-1.04) mg/dL Est GFR (CKD-EPI)AfAm 80 (>60 ml/min/1.73 sqM) Est GFR (CKD-EPI)NonAf 70 (>60 ml/min/1.73 sqM) Glucose 132 H (74-99) mg/dL Calcium 8.8 (8.4-10.2) mg/dL Magnesium 1.9 (1.6-2.3) mg/dL Total Bilirubin 0.4 (0.2-1.3) mg/dL AST 27 (14-36) U/L ALT 14 (4-34) U/L Alkaline Phosphatase 63 (38-126) U/L Troponin I (0.000-0.034) ng/mL Total Protein 7.0 (6.3-8.2) g/dL Albumin 4.1 (3.5-5.0) g/dL Influenza Type A (PCR) (Not Detectd) Influenza Type B (PCR) (Not Detectd) RSV (PCR) (Not Detectd) SARS-CoV-2 (PCR) (Not Detectd) 05/12/24 05/12/24 Range/Units 04:26 04:26 WBC (3.8-10.6) k/uL RBC (3.80-5.40) m/uL Hgb (11.4-16.0) gm/dL Hct (34.0-46.0) % MCV (80.0-100.0) fL MCH (25.0-35.0) pg MCHC (31.0-37.0) g/dL RDW (11.5-15.5) % Plt Count (150-450) k/uL MPV Neutrophils % % Lymphocytes % % Monocytes % % Eosinophils % % Basophils % % Neutrophils # (1.3-7.7) k/uL Lymphocytes # (1.0-4.8) k/uL Monocytes # (0-1.0) k/uL Eosinophils # (0-0.7) k/uL Basophils # (0-0.2) k/uL PT (10.0-12.5) sec INR (<1.2) APTT (22.0-30.0) sec Sodium (137-145) mmol/L Potassium (3.5-5.1) mmol/L Chloride (98-107) mmol/L Carbon Dioxide (22-30) mmol/L Anion Gap mmol/L BUN (7-17) mg/dL Creatinine (0.52-1.04) mg/dL Est GFR (CKD-EPI)AfAm (>60 ml/min/1.73 sqM) Est GFR (CKD-EPI)NonAf (>60 ml/min/1.73 sqM) Glucose (74-99) mg/dL Calcium (8.4-10.2) mg/dL Magnesium (1.6-2.3) mg/dL Total Bilirubin (0.2-1.3) mg/dL AST (14-36) U/L ALT (4-34) U/L Alkaline Phosphatase (38-126) U/L Troponin I <0.012 (0.000-0.034) ng/mL Total Protein (6.3-8.2) g/dL Albumin (3.5-5.0) g/dL Influenza Type A (PCR) Detected A (Not Detectd) Influenza Type B (PCR) Not Detected (Not Detectd) RSV (PCR) Not Detected (Not Detectd) SARS-CoV-2 (PCR) Not Detected (Not Detectd) Disposition Clinical Impression: Influenza A Disposition: HOME SELF-CARE Condition: Fair Instructions (If sedation given, give patient instructions): Influenza (ED) Prescriptions: Oseltamivir [Tamiflu] 75 mg PO Q12HR #10 cap Albuterol Inhaler [Ventolin Hfa Inhaler] 1 - 2 puff INHALATION Q4HR PRN #1 each PRN Reason: Shortness Of Breath Azithromycin [Zithromax Z Pack] 1 tab PO DIRECTED #6 tab Is patient prescribed a controlled substance at d/c from ED?: No Referrals: None,Stated [Primary Care Provider] - 1-2 days Time of Disposition: 05:27
[2024-05-12 04:52] LABS: Partial Thromboplastin Time 22.5 sec (22.0-30.0); Prothrombin Time 11.3 sec (10.0-12.5)
[2024-05-12 04:57] LABS: ALT 14 U/L (4-34); AST 27 U/L (14-36); African American GFR (CKD) 80 (>60 ml/min/1.73 sqM); Albumin 4.1 g/dL (3.5-5.0); Alkaline Phosphatase 63 U/L (38-126); Anion Gap 10 mmol/L; Blood Urea Nitrogen 18 mg/dL (7-17); Calcium 8.8 mg/dL (8.4-10.2); Carbon Dioxide 30 mmol/L (22-30); Chloride 96 mmol/L (98-107); Glucose 132 mg/dL (74-99); Magnesium 1.9 mg/dL (1.6-2.3); Non-African American GFR(CKD) 70 (>60 ml/min/1.73 sqM); Potassium 3.6 mmol/L (3.5-5.1); Sodium 136 mmol/L (137-145); Total Bilirubin 0.4 mg/dL (0.2-1.3)
[2024-05-12 05:13] LABS: Influenza A Detected (Not Detectd); Influenza B Not Detected (Not Detectd); RSV Not Detected (Not Detectd)
[2024-05-12 05:17] VITALS: BP 130/89; PULSE 87; RESP 19; TEMP 100.9
--- NOTE | 2024-05-12 05:50 | XR ---
EXAM: XR Chest, 2 Views CLINICAL HISTORY: ITS.REASON XR Reason: syncope TECHNIQUE: Frontal and lateral views of the chest. COMPARISON: X-ray dated 10/20/2020. FINDINGS: Lungs: Unremarkable. No consolidation. Pleural space: Unremarkable. No pneumothorax. Heart: Unremarkable. No cardiomegaly. Mediastinum: Unremarkable. Normal mediastinal contour. Bones/joints: Degenerative changes are seen in the spine. No acute fracture. Vasculature: Calcifications overlie the aorta. IMPRESSION: No acute findings in the chest.
== END 2024-05-12 05:42 | disposition home or self-care (01) ==
LOC: EC 03:51
DX: J10.00 Influenza due to other identified influenza virus with unspecified type of pneumonia (principal)
CPT/HCPCS: 36415; 71046; 80053; 83735; 84484; 85025; 85610; 85730; 87636; 93005; 96360; 99284